=== PATIENT | female | born 1990 | race Two or more races ===

== ENCOUNTER 2017-01-25 01:49 | Emergency (ER) | payer SELFPAY ==
[~2017-01-25] VITALS: Ht 160 cm; Wt 81.6 kg
[~2017-01-25 01:49] MED LIST: IBUPROFEN800 MG PO; NKM; ONDANSETRON ODT4 MG ORAL
[2017-01-25 03:15] VITALS: BP 138/93
[2017-01-25] MEDS ORDERED: BACTRIM DS TAB1 EAC1 ORAL (04:24)
[2017-01-25 04:30] VITALS: BP 133/97
--- NOTE | 2017-01-25 05:01 | Emergency Room Report ---
History of Present Illness General Chief Complaint: Skin Rash/Abscess Source: Patient Present Illness HPI 26YOF with "a few days" of "cyst" to right groin. Patient endorses history of cysts "all over my body to areas where I sweat or shave" but denies history of DM. States she tried "to pop it." Allergies: Coded Allergies: AMOXICILLIN (Verified Allergy, 10/03/13) Patient History Past Medical History: other - abscesses? Past Surgical History: none Pertinent Family History: none Social History: Denies: alcohol use, drug use, smoking Last Menstrual Period: LAST MONTH Now: No Reviewed Nursing Documentation: PMH: Agreed, PSxH: Agreed Nursing Documentation-PMH Past Medical History: No Stated History Review of Systems All Other Systems: negative except mentioned in HPI Physical Exam Vital Signs Date Time Temp Pulse Resp B/P Pulse Ox O2 Delivery O2 Flow Rate FiO2 01/25/17 03:10 98.2 101 18 142/92 100 Room Air Sp02 EP Interpretation: reviewed, normal General Appearance: normal inspection, well appearing, no apparent distress, alert Head: atraumatic ENT: normal ENT inspection, hearing grossly normal, normal voice Neck: normal inspection, full range of motion, supple, no bony tend Respiratory: normal inspection, lungs clear, normal breath sounds, no respiratory distress, no retraction, no wheezing Cardiovascular #1: regular rate, rhythm, no edema Gastrointestinal: normal inspection, normal bowel sounds, non tender, soft, no guarding, no hernia Genitourinary: no CVA tenderness Musculoskeletal: normal inspection, back normal, normal range of motion, Khrsi' s Sign negative Neurologic: normal inspection, alert, oriented x3, responsive, physical sciences instructor III-XII nml as tested, speech normal Psychiatric: normal inspection, judgement/insight normal, mood/affect normal Skin: other - Exam done with ERICK Dyer as surveyor chain helper: Right groin: 1/2cm area of fluctuance surrounded by 2-3 cm area of erythema. Very ttp Medical Decision Making Diagnostic Impression: Primary Impression: Abscess ER Course Early abscess plus cellulitis to right groin. VSS. Afebrile. Advised Rx Bactrim (allergy to PCN) and warm compresses 4x a day Understands to return for I&D if no improvement DC home Last Vital Signs Date Time Temp Pulse Resp B/P Pulse Ox O2 Delivery O2 Flow Rate FiO2 01/25/17 04:30 98.3 84 16 133/97 100 Room Air Status: improved Disposition: HOME, SELF-CARE Condition: Improved Scripts Trimethoprim/Sulfamethoxazole 160/800* (BACTRIM DS TABLET*) 1 Each Tablet 1 TAB ORAL Q12H for 7 Days, #14 TAB 0 Refills Prov: FUAD RAYGOZA M.D. 01/25/17 Patient Instructions: Abscess Additional Instructions: - Take Bactrim 2x a day for 7 days until finished - Apply hot towel compress 4x a day to area of abscess - Return to ER for Incision and drainage if no improvement after 5-7 days FUAD RAYGOZA M.D. Jan 25, 2017 05:01
== END 2017-01-25 04:30 | disposition home or self-care (01) ==
LOC: EMR 03:40
DX: L02.214 Cutaneous abscess of groin (principal); Z88.0 Allergy status to penicillin
CPT/HCPCS: 99283